=== PATIENT | female | born 1970 ===

== ENCOUNTER 2021-06-05 05:22 | Day surgery (SDC) | payer OTHER | END 2021-06-05 11:10 | disposition home or self-care (01) | LOC: CIR.AMB 05:22 → EDSTATUS 09:45 → CIR.AMB 09:45 → SURH 09:45 → CIR.AMB 10:00 | PROVIDERS: ATTEND Surgery Surgery of the Hand | DX: M67.843 Other specified disorders of tendon, right hand (principal); Z20.822 Contact with and (suspected) exposure to COVID-19 ==